=== PATIENT | female | born 2000 | race Hispanic/Latino ===

== ENCOUNTER 2020-06-20 09:15 | Emergency (ER) | payer OTHER ==
[~2020-06-20] VITALS: Ht 157.5 cm; Wt 74.6 kg
[2020-06-20 10:54] LABS: BASO % 0.4 % (0.0-1.0); EOS # 0.3 10^3/uL (0.0-0.5); EOS % 3.4 % (0.0-3.0); HEMATOCRIT 40.7 % (36.0-47.0); HEMOGLOBIN 13.7 g/dl (12.0-15.5); LYMPH # 2.6 10^3/uL (1.5-5.0); LYMPH % 31.8 % (24.0-44.0); MEAN CORPUSCULAR HGB CONC 33.7 g/dl (32.0-36.5); MEAN CORPUSCULAR VOLUME 89.1 fl (80.0-96.0); MONO # 0.5 10^3/uL (0.0-0.8); MONO % 6.4 % (2.0-8.0); NEUTROPHILS # 4.6 10^3/uL (1.5-8.5); NEUTROPHILS % 57.8 % (36.0-66.0); PLATELET COUNT, AUTOMATED 258 10^3/uL (150-450); RED BLOOD COUNT 4.57 10^6/uL (4.00-5.40)
--- NOTE | 2020-06-20 11:29 | REP ---
INDICATION: RUQ pain, concern for gallstones COMPARISON: None. TECHNIQUE: Real time tirado scale ultrasound examination using curved array transducer. FINDINGS: Liver is normal in contour, size, and echogenicity without focal hepatic lesions identified. Pancreas is incompletely evaluated due to interposed bowel gas. The gallbladder demonstrates 11 mm gallstone without wall thickening or pericholecystic fluid. No biliary ductal dilatation is appreciated and the common bile duct measures 3.0 mm diameter. Right kidney is normal in reniform shape without hydronephrosis and measures 9.1 x 4.6 x 4.1 cm. No ascites in the visualized right upper quadrant. IMPRESSION: Cholelithiasis. <Electronically signed by Rudy Borja > 06/20/20 [id number]
[2020-06-20 11:47] LABS: ALBUMIN 3.9 GM/DL (3.2-5.2); ALT/SGPT 12 U/L (12-78); BILIRUBIN,DIRECT 0.1 MG/DL (0.0-0.2); BILIRUBIN,TOTAL 0.2 MG/DL (0.2-1.0); BLOOD UREA NITROGEN 6 MG/DL (7-18); CARBON DIOXIDE LEVEL 25 MEQ/L (21-32); CHLORIDE LEVEL 109 MEQ/L (98-107); CREATININE FOR GFR 0.61 MG/DL (0.55-1.30); GLOMERULAR FILTRATION RATE > 60.0 (>60); GLUCOSE, FASTING 94 MG/DL (70-100); HCG, SERUM QUANTITATIVE 4450 MIU/ML; LIPASE 71 U/L (73-393); POTASSIUM SERUM 4.1 MEQ/L (3.5-5.1); SODIUM LEVEL 140 MEQ/L (136-145); TOTAL PROTEIN 7.2 GM/DL (6.4-8.2)
[2020-06-20 12:03] VITALS: BP 121/60
== END 2020-06-20 12:04 | disposition home or self-care (01) ==
LOC: M ED 09:15
DX: O26.619 Liver and biliary tract disorders in pregnancy, unspecified trimester (principal); K80.80 Other cholelithiasis without obstruction; Z3A.01 Less than 8 weeks gestation of pregnancy

== ENCOUNTER → 2020-10-04 | Outpatient (CLI) | payer OTHER ==
--- NOTE | 2020-10-04 11:48 | REP ---
INDICATION: PREG LEVEL II ANATOMY COMPARISON: None. TECHNIQUE: Transabdominal obstetrical ultrasound with color Doppler evaluation. FINDINGS: Examination demonstrates a single live intrauterine in transverse presentation. motion is identified by technologist. Placenta is noted anterior and grade 0 without evidence for placenta previa or abruption. Amniotic fluid volume is normal. Cervix measures 4.2 cm in length and appears closed.. Selected gestational age: 20 weeks 6 days with ROSIE 02/15/2021. Gestational age by current measurements 20 weeks 3 days with ROSIE 02/18/2021. FHR equals 135 beats per minute. BPD: 4.7 cm at 20 weeks 2 days HC: 18.1 cm at 20 weeks 3 days AC: 15.5 cm at 20 weeks 4 days FL: 3.3 cm at 20 weeks 1 day HL: 3.1 cm at 20 weeks 1 day HC/AC: 1.17 Estimated weight 354 grams (23rdpercentile). Anatomical assessment demonstrates normal structures including cranium, choroid plexus, cavum, cerebellum/posterior fossa, lungs, four-chamber heart/ventricular outflow tracts, diaphragm, stomach, cord insertion/three-vessel cord, kidneys/bladder, and extremities. Limited evaluation of the facial profile and spine due to positioning. IMPRESSION: Single live intrauterine demonstrating appropriate estimated weight. Anatomical limitations as noted above may warrant follow-up. <Electronically signed by Rudy Borja > 10/04/20 0607
== END ==
LOC: M RAD 10:57
PROVIDERS: ATTEND Registered Nurse Maternal Newborn
DX: Z36.89 Encounter for other specified antenatal screening (principal); O32.2XX0 Maternal care for transverse and oblique lie, not applicable or unspecified

== ENCOUNTER 2021-01-12 15:03 | Outpatient (CLI) | payer OTHER ==
[~2021-01-12] VITALS: Ht 157.5 cm; Wt 83.1 kg
[2021-01-12 15:26] VITALS: BP 122/69
--- NOTE | 2021-01-12 16:39 | IPNPDOC ---
Text Note Date of Service The patient was seen on 01/12/21. NOTE S: 20yo raudel [id number] @35+1 presents for APFT on Labor and Delivery in triage. Denies bleeding, LOF, contractions, states reassuring FM. Denies headaches, vision changes. O: VSS RNST, FHR 130, +accel, isolated variable decel with brisk spontaneous recovery to baseline, no contractions noted A: CHTN on [id number] P: PTL precautions reasons to return for care pre eclampsia precautions keep scheduled f/u for COB and APFT VS,Fishbone, I+O VS, Fishbone, I+O Vital Signs Date Time Temp Pulse Resp B/P (MAP) Pulse Ox O2 Delivery O2 Flow Rate FiO2 01/12/21 15:26 98.1 98 16 122/69 (86) AMANDA DEWITT CNM Jan 12, 2021 16:39
== END 2021-01-12 16:16 | disposition home or self-care (01) ==
LOC: M LDO 15:03
PROVIDERS: ATTEND Registered Nurse
DX: O47.03 False labor before 37 completed weeks of gestation, third trimester (principal); Z3A.35 35 weeks gestation of pregnancy
CPT/HCPCS: 59025; G0378; G0463

== ENCOUNTER 2021-01-27 09:01 | Inpatient (IN) | payer OTHER ==
[2021-01-27] VITALS (18 sets, daily range): BP systolic 122–157; BP diastolic 64–107
[~2021-01-27] VITALS: Ht 157.5 cm; Wt 85.4 kg
[2021-01-27] MEDS ORDERED: OXYTOCIN INJ 10 UNITS/ML VIAL (J2590) IV PRN (11:05)
[2021-01-27] MEDS ORDERED: METHYLERGONOVINE MALEATE 0.2 MG/ML VIAL (J2210) IM PRN (11:05)
[2021-01-27] MEDS ORDERED: LACTATED RINGER'S 1000 ML IV ONE (11:05)
[2021-01-27] MEDS ORDERED: OXYTOCIN DRIP 30 UNITS in IV 1 EA IV PRN (11:05)
[2021-01-27] MEDS ORDERED: miSOPROStol 50MCG 1/2 TABLET PO ONE ×2 (11:05→16:30)
[2021-01-27] MEDS ORDERED: LR 1,000 ML IV SCH (11:05)
[2021-01-27] MEDS ORDERED: HOME MED LIST COMPLETE! XX SCH (11:15)
[2021-01-27 11:23] LABS: HEMATOCRIT 35.2 % (36.0-47.0); MEAN CORPUSCULAR HGB CONC 34.1 g/dl (32.0-36.5); PLATELET COUNT, AUTOMATED 227 10^3/uL (150-450); WHITE BLOOD COUNT 10.6 10^3/uL (4.0-10.0)
--- NOTE | 2021-01-27 12:03 | HPEPDOC ---
Obstetrical History & Physical General Date of Admission Vital Signs Label Value Date Time Blood Pressure Assessment 131/87 (102) 01/27/21 0958 Source Automatic Cuff (NIBP) Pulse 107 01/27/21 0958 Blood Pressure Assessment 157/94 (115) 01/27/21 0942 Source Automatic Cuff (NIBP) Pulse 104 01/27/21 0942 Patient Temperature 97.9 degrees F 01/27/21 0941 Temperature Source Temporal 01/27/21 0941 Respiratory Rate 18 bpm 01/27/21 0941 Jan 27, 2021 at 09:01 Primary Care Physician: Raphael Bedolla MD History of Present Illness 01/27/21 20 YO A 4 LMP 05/11/20 EDC BY US 8 .4 WEEKS EDC 02/15/21 AT 37.3 WEEKS FOR IOL DUE TO CHTN NO MEDS Chief Complaint: Induction of labor Information Provided By: Patient Age: 20 : 6 Term: 2 Pre-term: 0 Abortions: 4 Livin Care Care: Good Care Number of Visits: 9 Dating Final EDC: Feb 15, 2021 Final EDC for Daily Update: Feb 15, 2021 Final EDC by: LMP LMP: May 11, 2020 1st Trimester Date: Jul 14, 2020 Weeks + Days: 8.4 Estimated Date of Confinement: Feb 15, 2021 EGA at Admission: 37.3 Antepartum Course Diagnos(e)s CNTN NO MEDICATION FOR IOL Height (inches): 62 Pre- weight (lbs.): 161 Admission Weight (lbs.): 185 Change in Weight (lbs.): 24 Past Medical History Past Obstetrical History #1: Past Obstetrical History: Multigravida Date of Delivery: Aug 09, 2016 Gestation: 39.6 Type of Delivery: Spontaneous Vaginal Del. Sex of Infant: Female Weight of (grams): 2862 Complications: No Past Obstetrical History #2: Date of Delivery: Mar 28, 2018 Gestation: 38.3 Type of Delivery: Spontaneous Vaginal Del. Sex of Infant: Female Weight of Infant (grams): 2864 Complications: No DRAW IN HAND History: Spontaneous ( X4) Past Medical History Medical History ASTHMA ON ALBUTEROL PRN CONGENITAL HIP DYSPLASIA Surgical History: Other (ENDOSCOPY HIP SCOP X 2 ) Family History Significant Family History: Cancer (THYROID. DIABETES.BREAST CANCER, HIP ISSUES ) Family History MOTHER ASTHMA , HIP ISSUES FATHER TYPE 2 DIABETES, THYROID CANCER GRAND MERE BREAST CANCER, TYPE 2 DIABETES GRAND FATHER TYPE 2 DIABETES Social History Social history ISSUES WITH SMOKING SELF HARM ISSUES STAY AT HOME HAS GOOD SUPPORT AT HOME NO ETOH NO VAPING RECREATIONAL MEDICATION SMOKER Marital Status: Family situation: Spouse/partner home Psychosocial History: Prior suicide attempt * Smoker: current smoker Alcohol: Denies Drugs: marijuana Abuse Violence Screening Have you been hit/kicked/slapp: No Have you been sexually assault: No Imunizations Tdap status: current Influenza Status: current Allergies Coded Allergies: metoclopramide (Verified Allergy, Unknown, 06/20/20) Medications No Active Prescriptions or Reported Meds Physical Examination Physical Examination GENERAL: Alert and oriented times three. BREAST: . ABDOMEN: Gravid and non-tender to touch. FETUS: Is vertex (VTX) by sterile vaginal examination (SVE), fetus is vertex (VTX) by Kareem. HEART RATE: Regular rate and rhythm. LUNGS: Clear to auscultation (CTA). EXTREMITIES: No edema. No clonus. Deep tendon reflexes (DTRs) + . Other physical findings ATRAUMATIC FULL NECK RANGE MOTION PERRLA CHEST CLEAR TO BASES NO WHEEZE NO RHONCHI NO SOB NO RHALS . HEART SOUNDS NORMAL MO MURMUR NO RASHES LESIONS PRURITUS NO ARTHRALGIA MYALGIA NO N/V/D/C/F/ NO URGENCY NO FREQUENCY Vital Signs/I&O Vital Signs Date Time Temp Pulse Resp B/P (MAP) Pulse Ox O2 Delivery O2 Flow Rate FiO2 01/27/21 09:58 107 131/87 (102) 01/27/21 09:41 97.9 18 Laboratory Data 24H [facility] Laboratory Tests 2 01/27/21 09:11: Serology Scanned Report Hepatitis B Testing Pertinent Laboratoy Data Blood Type: O+ RBC Antibody Screen: Negative HIV: Negative Hepatitis B: Negative Rapid Plasma Reagin: Nonreactive Rubella: Immune Chlamydia/Gonorrhea: Negative Group B Streptococcus: Negative Cystic Fibrosis: Negative Anatomy Ultrasound Ultrasound Date: Dec 05, 2020 Placenta Location: Anterior Normal Anatomy: Yes Estimated Weight (grams): 1318 Other Ultrasounds 01/17/21 Information SGA AT BELOW 10TH % WEIGHT Steroid Therapy Steroid Therapy: No Vaginal Examination Dilation: 2cm Effacement: 50% Station: -3 Cervical Consistency: Soft Cervical Position: Posterior Presentation: Cephalic presentation Assessment Heart Rate (FHR): 140 Variability: Moderate Accelerations: Present Decelerations: None Tocometer Contractions: No Assessment/Plan Assessment 20-year-old (G)6 para (P)2 at 37.3 weeks by 8.4 week ultrasound. Presents to Labor and Delivery (L&D) . FOR IOL RE CHTN AND SGA AT 37.3 WEEKS Plan Admit and orient. Automatic Driller And Reamer and consent. Diet: Group B Streptococcus (GBS) [negative]. Labs and intravenous (IV) per unit protocol. Counseled on Pitocin and induction of labor (IOL). MISOPROSTOL DISCUSSED Lactated Ringers (LR): Bolus 1000 mL, then at 125 mL/hr. Anticipate [normal spontaneous delivery ()]. C-S as appropriate. Labor and Delivery Counseling REVIEWED IOL BASED ON PELVIC EXAMINATION . REVIEWED INCREASED RISK OF NRFHT OR INCREASED RISK OF C/S . REVIEWED VAGINAL DELIVERY WITH RISK TEARS LACERATIONS NEEDING REPAIR INCREASE RISK OF OPERATIVE VAGINAL DELIVERY WITH FORCEPS OR VACUUM WITH RISK OF INFANT NICU. OTHER RISKS INCLUDE BLOOD TRANSFUSION REMOTE HYSTERECTOMY FOR LIFE THREATENING BLEEDING EXPRESSED UNDERSTANDING 40 MINUTES WITH EXAMINATION, ALL QUESTIONS ANSWERED Raphael Bedolla MD Jan 27, 2021 12:01
--- NOTE | 2021-01-27 20:42 | IPNPDOC ---
Text Note Date of Service Vital Signs Label Value Date Time Blood Pressure Assessment 135/86 (102) 01/27/212029 Source Automatic Cuff (NIBP) Respiratory Rate 18 bpm 01/27/212029 Pulse 85 01/27/212029 Patient Temperature 98.2 degrees F 01/27/212029 Temperature Source Temporal 01/27/212029 Patient Temperature 97.9 degrees F 01/27/21 1934 Pulse 86 01/27/21 193 Respiratory Rate 18 bpm 01/27/21 193 Blood Pressure Assessment 133/85 (101) 01/27/21 1934 Source Automatic Cuff (NIBP) Pulse 90 01/27/21 1627 Blood Pressure Assessment 123/64 (83) 01/27/21 1627 Source Automatic Cuff (NIBP) Blood Pressure Assessment 134/80 (98) 01/27/21 1443 Source Automatic Cuff (NIBP) Patient Temperature 98.1 degrees F 01/27/21 1443 Temperature Source Temporal 01/27/21 1443 Pulse 103 01/27/21 1443 Pulse 87 01/27/21 1324 Blood Pressure Assessment 132/80 (97) 01/27/21 1324 Source Automatic Cuff (NIBP) The patient was seen on 01/27/21. NOTE 01/27/212034 pm reviewed progress to date had 2 doses misoprostol cervical check inner os 2 cm outer os 4 cm soft -3 bulging membranes 60% effaced . catagory 1 strip clear fluid safe to proceed VS,Fishbone, I+O VS, Fishbone, I+O Laboratory Tests 01/27/21 11:08 Vital Signs Date Time Temp Pulse Resp B/P (MAP) Pulse Ox O2 Delivery O2 Flow Rate FiO2 01/27/21 20:30 98.2 85 18 135/86 (102) Raphael Bedolla MD Jan 27, 2021 20:41
[2021-01-27] MEDS ORDERED: OXYTOCIN DRIP 30 UNITS in IV 1 EA IV SCH (20:45)
[2021-01-27] MEDS ORDERED: FENTANYL 2MCG/ML ROPIVACAINE 0.2% IN 0.9% NACL 100ML IVBAG As Ordered ONE (21:23)
[2021-01-27] MEDS ORDERED: EPIDURAL/PCA KEYS XX PRN (23:00)
[2021-01-27] MEDS ORDERED: FENTANYL/ROPIVACAINE/NACL BAG 100 ML EPIDURAL SCH (23:00)
[2021-01-27] MEDS ORDERED: ePHEDrine SULFATE 25 MG/5 ML(5MG/ML) SYRINGE IV PRN (23:00)
[2021-01-27] MEDS ORDERED: ONDANSETRON 4MG/2ML VIAL IV PRN (23:00)
[2021-01-27] MEDS ORDERED: EPIDURAL COMMENT XX SCH (23:00)
[2021-01-27] MEDS ORDERED: NALOXONE INJ 0.4MG/1ML VIAL (J2310 PER 1MG) IV PRN (23:00)
[2021-01-27] MEDS ORDERED: REFRIGERATOR IV KEYS XX PRN (23:00)
[2021-01-27] MEDS ORDERED: LACTATED RINGER'S 1000 ML IV PRN (23:00)
[2021-01-27] MEDS ORDERED: diphenhydrAMINE 50MG/ML VIAL (J1200) IV PRN (23:00)
[2021-01-27 23:37] LABS: CORD GAS HCO3 A 22.7 MEQ/L; CORD GAS O2 SAT A 75.1 %; CORD GAS PCO2 A 38.8 mmHg; CORD GAS PH A 7.385 UNITS; CORD GAS PO2 A 29.7 mmHg; CORD GAS SBC A 22.3 MEQ/L; CORD GAS TCO2 A 23.9 MEQ/L
[2021-01-27 23:39] LABS: CORD GAS ABE V -0.3; CORD GAS HCO3 V 23.8 MEQ/L; CORD GAS O2 SAT V 82.7 %; CORD GAS PCO2 V 37.4 mmHg; CORD GAS PH V 7.422 UNITS; CORD GAS PO2 V 33.8 mmHg; CORD GAS SBC V 23.9 MEQ/L
[2021-01-28] VITALS (10 sets, daily range): BP systolic 114–142; BP diastolic 56–86
[2021-01-28] MEDS ORDERED: OXYTOCIN DRIP 30 UNITS in IV 1 EA IV ONE (00:10)
[2021-01-28] MEDS ORDERED: DIBUCAINE 1% OINTMENT 30GM TOP PRN (00:10)
[2021-01-28] MEDS ORDERED: OXYTOCIN DRIP 30 UNITS in IV 1 EA IV SCH (00:10)
[2021-01-28] MEDS ORDERED: ACETAMINOPHEN TAB 650MG DOSE (2X325MG) PO PRN (00:10)
[2021-01-28] MEDS ORDERED: DOCUSATE SODIUM 100MG CAPSULE PO PRN (00:10)
[2021-01-28] MEDS ORDERED: METHYLERGONOVINE MALEATE 0.2 MG TAB PO PRN (00:10)
[2021-01-28] MEDS ORDERED: RHOGAM 300 MCG (1500 IU) INJ (J2790) IM SCH (00:10)
[2021-01-28] MEDS ORDERED: MOM 30ML SUSPENSION UDC PO PRN (00:10)
[2021-01-28] MEDS ORDERED: ANUSOL HC CREAM 30GM TOP PRN (00:10)
[2021-01-28] MEDS ORDERED: LR 1,000 ML IV SCH (00:10)
[2021-01-28] MEDS ORDERED: MEASLES,MUMPS,RUBELLA VACCINE INJ (MMR-II) (90707) SC SCH (00:10)
[2021-01-28] MEDS ORDERED: OXYTOCIN INJ 10 UNITS/ML VIAL (J2590) IV ONE (00:10)
[2021-01-28] MEDS: IBUPROFEN 600MG TAB PO PRN ×2 (05:11→21:04)
[2021-01-28] MEDS ORDERED: PRENATAL VITAMINS CHEWABLE TABLET PO SCH (09:00)
[2021-01-28] MEDS: ACETAMINOPHEN 500 MG TAB PO PRN (09:30)
--- NOTE | 2021-01-28 11:10 | DN ---
DELIVERY NOTE DATE OF DELIVERY: 01/27/2021 DESCRIPTION OF DELIVERY: 20-year-old, 6, para 2, admitted for induction of labor at 37.3 weeks because of chronic hypertension. With epidural in place she had a spontaneous vaginal delivery of a livebirth male infant weighing 5 pounds, 10 ounces, 2540 gm, Apgars of 8 and 9 at 1 and 5 minutes respectively. Cord around the neck x1. Arterial pH 7.38, base excess -2.0, venous pH 7.42, base excess -0.3. The placenta delivered spontaneously thereafter, three vessels in the cord, membranes and tissues intact. Examination of anterior, posterior and lateral tolliver was complete. Sphincter was tight. Uterus controlled well down on Pitocin. Patient and baby tolerating procedure well. Estimated blood loss 100 mL. cc: [facility]
[2021-01-29] MEDS: ACETAMINOPHEN 500 MG TAB PO PRN (04:37)
[2021-01-29 06:00] VITALS: BP 143/62
[2021-01-29 06:03] LABS: HEMATOCRIT 32.8 % (36.0-47.0); HEMOGLOBIN 10.7 g/dl (12.0-15.5); MEAN CORPUSCULAR HEMOGLOBIN 29.6 pg (27.0-33.0); MEAN CORPUSCULAR HGB CONC 32.6 g/dl (32.0-36.5); MEAN CORPUSCULAR VOLUME 90.6 fl (80.0-96.0); PLATELET COUNT, AUTOMATED 190 10^3/uL (150-450); RED BLOOD COUNT 3.62 10^6/uL (4.00-5.40); WHITE BLOOD COUNT 9.7 10^3/uL (4.0-10.0)
--- NOTE | 2021-01-29 06:23 | IPN ---
PROGRESS NOTE DATE: 01/28/2021 day #1. SUBJECTIVE: This lady is a 4 para 2, admitted for induction of labor at 37 and 3 weeks of gestation because of chronic hypertension. She delivered a livebirth male infant, 5 pounds, 10 ounces, 2540 grams, Apgars of 8 and 9 at 1 and 5 minutes respectively. On the first day we discussed phlebitis, cystitis, mastitis, endometritis, and cellulitis, diet, exercise, pain management, perineal, breast and wound care. PHYSICAL EXAMINATION: The rest of the examination was unremarkable. Normocephalic, atraumatic. Neck: Full range of motion. Pupils are equal and reactive to light. Distal pulses are symmetric. No evidence of DVT, PE or superficial phlebitis. Chest is clear bilaterally at bases. No wheezes or rhonchi. No CVA tenderness. Abdomen is soft, four quadrant bowel sounds are noted. The perineum is intact. Her admitting hemoglobin was 12.0, hematocrit 35.2 and platelets are 227,000. Blood pressure this morning is 130/86, respirations are 17 and pulse 86, temperature is 98.1. Plans are for discharge tomorrow, nut picker medications at [place], a six week checkup at [facility]. All questions were answered, a 20 minute discussion. Patient is anxious to go home. cc: [facility]
[2021-01-29] MEDS ORDERED: COLA100C5 PO (08:03)
[2021-01-29] MEDS ORDERED: PRENCHW PO (08:03)
[2021-01-29] MEDS ORDERED: IBUP-1022 PO (08:03)
--- NOTE | 2021-01-29 08:41 | DSES ---
DISCHARGE SUMMARY DATE OF ADMISSION: 01/27/2021 DATE OF DISCHARGE: 01/29/2021 BRIEF HISTORY: This is a 20-year-old 6 now para 3, admitted for induction of labor for chronic hypertension at 37 and 3 weeks of gestation, delivered a male , 5 pounds, 10 ounces, 2540 grams, Apgars of 8 and 9 at 1 and 5 minutes respectively. Arterial pH 7.38, base excess -2.0, venous pH 7.42, base excess -0.3. Her risk factors are that she has chronic hypertension, congenital hip dysplasia, she is a smoker and has asthma. On her discharge, her blood pressure was 118/59, respirations were 17, pulse 84, temperature 98.7. Her admitting hemoglobin was 10.1, hematocrit 33.0 and platelets 271,000. Discharge hemoglobin 7.3, hematocrit 23.7 and platelets were 201,000. She is asymptomatic. PHYSICAL EXAMINATION: The rest of the examination is unremarkable. Normocephalic, atraumatic. Neck with full range of motion. Pupils equal and reactive to light. Distal pulses are symmetric. No evidence of DVT, PE or superficial phlebitis. Chest is clear bilaterally to bases. No wheezes or rhonchi. No CVA tenderness. Abdomen is soft, four quadrant bowel sounds are noted. Uterus is 2 below. Lochia is moderate. No rashes, lesions or pruritus. No arthralgias or myalgias. No complaint of joint pain. No complaint of cough, wheeze, shortness of breath, or dyspnea on exertion. No urgency or frequency. PLAN: For discharge today, grape picker medications at [place], a six week checkup at [facility]. We offered her again smoking cessation protocols, pamphlets, medication and program, she declined. We will reevaluate that decision at her six week checkup. All questions were answered, a 20 minute discussion. cc: [facility]
== END 2021-01-29 10:15 | disposition home or self-care (01) | DRG 807 ==
LOC: M LDI 09:01 → M OBS 01-28 02:06
PROVIDERS: ADMIT Obstetrics & Gynecology; ATTEND Obstetrics & Gynecology
PROC: 10E0XZZ Delivery of Products of Conception, External Approach (ICD-10-PCS; principal; 2021-01-27)
PROC: 3E0P7GC Introduction of Other Therapeutic Substance into Female Reproductive, Via Natural or Artificial Opening (ICD-10-PCS; 2021-01-27)
DX: O10.02 Pre-existing essential hypertension complicating childbirth (principal); Z37.0 Single live birth; Z3A.37 37 weeks gestation of pregnancy; O99.52 Diseases of the respiratory system complicating childbirth; J45.909 Unspecified asthma, uncomplicated; O69.81X0 Labor and delivery complicated by cord around neck, without compression, not applicable or unspecified

== ENCOUNTER 2021-08-22 07:31 | Day surgery (SDC) | payer OTHER ==
[~2021-08-22] VITALS: Ht 157.5 cm; Wt 79.7 kg
[~2021-08-22 07:31] MED LIST: ACETAMINOPHEN 650 MG SUPP PR ONE; CETI5SOL3 PO; COLA100C5 PO; IBUP-1022 PO; PRENCHW PO; PROAAER10 INH
[2021-08-22] MEDS ORDERED: LR 1,000 ML IV SCH (08:05)
[2021-08-22 08:12] LABS: HEMATOCRIT 40.8 % (36.0-47.0); MEAN CORPUSCULAR HEMOGLOBIN 29.7 pg (27.0-33.0); MEAN CORPUSCULAR HGB CONC 34.3 g/dl (32.0-36.5); MEAN CORPUSCULAR VOLUME 86.4 fl (80.0-96.0); PLATELET COUNT, AUTOMATED 271 10^3/uL (150-450); RED BLOOD COUNT 4.72 10^6/uL (4.00-5.40); WHITE BLOOD COUNT 8.7 10^3/uL (4.0-10.0)
[2021-08-22 08:44] LABS: BLOOD UREA NITROGEN 14 MG/DL (7-18); CALCIUM LEVEL 9.2 MG/DL (8.5-10.1); CARBON DIOXIDE LEVEL 27 MEQ/L (21-32); CHLORIDE LEVEL 108 MEQ/L (98-107); CREATININE FOR GFR 0.78 MG/DL (0.55-1.30); GLOMERULAR FILTRATION RATE > 60.0 (>60); GLUCOSE, FASTING 110 MG/DL (70-100); HCG, SERUM QUANTITATIVE < 1.0 MIU/ML; POTASSIUM SERUM 4.5 MEQ/L (3.5-5.1); SODIUM LEVEL 139 MEQ/L (136-145)
[2021-08-22] MEDS ORDERED: propofoL 200 MG/20 ML VIAL As Ordered ONE (09:16)
[2021-08-22] MEDS ORDERED: ROCURONIUM BROMIDE 50 MG/5 ML VIAL As Ordered ONE (09:16)
[2021-08-22] MEDS ORDERED: KETOROLAC 60MG 2ML VIAL As Ordered ONE ×2 (09:16→11:22)
[2021-08-22] MEDS ORDERED: ONDANSETRON 4MG 2ML VIAL As Ordered ONE ×2 (09:16→11:46)
[2021-08-22] MEDS ORDERED: dexameTHASONE 4 MG/ML 1ML VIAL (J1100 PER 1MG) As Ordered ONE (09:17)
[2021-08-22] MEDS ORDERED: MIDAZOLAM INJ 2MG/2ML VIAL (J2250 PER 1MG) As Ordered ONE (09:17)
[2021-08-22] MEDS ORDERED: fentaNYL 100 MCG/2 ML INJECTION As Ordered ONE (09:17)
[2021-08-22] MEDS ORDERED: SUGAMMADEX SODIUM 500 MG/5 ML VIAL (BRIDION) As Ordered ONE (09:21)
[2021-08-22] MEDS ORDERED: LIDOCAINE 2% INJ 100 MG/5 ML SYRINGE As Ordered ONE (10:07)
[2021-08-22] MEDS ORDERED: BUPIVACAINE HCL 0.5% 30ML VIAL As Ordered ONE (10:41)
[2021-08-22] MEDS ORDERED: ACETAMINOPHEN 1000MG 100ML IV BTL (OFIRMEV) (J0131 PER 10MG) As Ordered ONE (10:54)
[2021-08-22] MEDS ORDERED: fentaNYL 100 MCG/2 ML INJECTION IV PRN (11:40)
[2021-08-22] MEDS ORDERED: ONDANSETRON 4MG 2ML VIAL IV PRN (11:40)
[2021-08-22] MEDS ORDERED: MEPERIDINE INJ 25 MG/ML VIAL (J2175) IV PRN (11:40)
[2021-08-22] MEDS ORDERED: NS 1,000 ML IV SCH (11:40)
[2021-08-22] MEDS ORDERED: oxyCODONE 5MG TAB PO PRN (11:40)
[2021-08-22] MEDS ORDERED: MEPERIDINE 50 MG/ML 1ML VIAL (J2175) As Ordered ONE (11:42)
[2021-08-22 14:17] VITALS: BP 125/72
[2021-08-22] MEDS ORDERED: KETOROLAC 30 MG/ML 1ML VIAL IV SCH (17:00)
== END 2021-08-22 14:25 | disposition home or self-care (01) ==
LOC: M SDC 07:31
PROVIDERS: ATTEND Obstetrics & Gynecology
DX: Z30.2 Encounter for sterilization (principal); K21.9 Gastro-esophageal reflux disease without esophagitis; F12.10 Cannabis abuse, uncomplicated; J45.909 Unspecified asthma, uncomplicated; Z79.899 Other long term (current) drug therapy; Z79.51 Long term (current) use of inhaled steroids; Z88.8 Allergy status to other drugs, medicaments and biological substances
CPT/HCPCS: 36415; 58661; 80048; 84702; 85027; 88302; G0123; J0131; J1100; J1885; J2175; J2250; J2405; J3010

== ENCOUNTER 2021-08-30 15:22 | Emergency (ER) | payer OTHER ==
[~2021-08-30] VITALS: Ht 157.5 cm; Wt 79.9 kg
[~2021-08-30 15:22] MED LIST changes: -ACETAMINOPHEN 650 MG SUPP PR ONE
[2021-08-30] MEDS ORDERED: OXYC1TAB23 PO (15:39)
[2021-08-30] MEDS ORDERED: ACET-683 PO (15:39)
[2021-08-30 16:56] VITALS: BP 125/72
== END 2021-08-30 16:58 | disposition home or self-care (01) ==
LOC: M ED 15:22
DX: L76.34 Postprocedural seroma of skin and subcutaneous tissue following other procedure (principal); I10 Essential (primary) hypertension; Z79.899 Other long term (current) drug therapy; Z88.8 Allergy status to other drugs, medicaments and biological substances